=== PATIENT | male | born 1995 | race Caucasian/White ===

== ENCOUNTER 2020-10-22 21:55 | Emergency (ER) | payer OTHER ==
[~2020-10-22] VITALS: Ht 170.2 cm; Wt 81.6 kg
[2020-10-22 22:10] VITALS: BP 113/85
--- NOTE | 2020-10-22 22:13 | NUR ---
TO LOBBY A/W BED AMBULATORY
[2020-10-23] MEDS ORDERED: AZITHROMYCIN 250 MG TAB PO ONE (00:15)
[2020-10-23] MEDS ORDERED: cefTRIAXone 1,000 MG in LIDOCAINE MPF 1% 2.1 ML IM ONE (00:15)
[2020-10-23] MEDS ORDERED: LIDOCAINE MPF 1% 5 ML ONE (00:33)
[2020-10-23] MEDS ORDERED: cefTRIAXone 1,000 MG VIAL ONE (00:33)
[2020-10-23 00:53] VITALS: BP 113/85
--- NOTE | 2020-10-23 00:53 | NUR ---
Patient discharged with v/s stable. Written and verbal after care instructions given and explained. Patient verbalized understanding. Ambulatory with steady gait. All questions addressed prior to discharge. Advised to follow up with PMD.
== END 2020-10-23 00:53 | disposition home or self-care (01) ==
LOC: MED 21:55
DX: N50.89 Other specified disorders of the male genital organs (principal)
CPT/HCPCS: 36415; 86592; 86694; 86702; 87491; 96372; 99283; J0696; J2001